=== PATIENT | male | born 1955 | race Caucasian/White ===

== ENCOUNTER 2019-05-05 09:05 | Day surgery (SDC) | payer MEDICARE, BC ==
[2019-05-05 09:38] LABS: INTERNATIONAL RATION (INR) 0.98
[2019-05-05 09:39] LABS: PARTIAL THROMBOPLASTIN TIME 29.1 SEC (23.5-35.8)
[2019-05-05] MEDS ORDERED: DEXTROSE 5%-1/2 NORMAL SALINE 1,000 ML IV PRN (10:10)
[2019-05-05 14:03] VITALS: BP 128/80
--- NOTE | 2019-05-06 14:17 | RADIOLOGY REPORT (SQ) ---
EXAM DESCRIPTION: CT LUMBAR SPINE WITH; MYELOGRAM LUMBAR COMPLETED DATE/TIME: 05/05/2019 11:52 am; 05/05/2019 11:53 am REASON FOR STUDY: SPINAL STENOSIS, LUMBAR REGION W/O NEUROGENIC CLAUDICATION M48.061 SPINAL STENOSI S, LUMBAR REGION WITHOUT NEUROGENIC CL Z79.01 [facility] (CURRENT) USE OF ANTICOAGULANTS COMPARISON: Lumbar myelogram 01/22/2008 FLUOROSCOPY TIME: 1 minutes 7 seconds 19 fluoroscopic digital images, CT scanning of the lumbar spine with sagittal and coronal reconstruct ions images saved to PACS. TECHNIQUE: Fluoroscopic guided lumbar myelogram. LIMITATIONS: None. PROCEDURE: After written consent and assessment were obtained, the patient was brought into the fluo roscopy room and placed prone on the table. The patient's lower back was prepped in a sterile fashio n and an entry site was selected under live fluoroscopic guidance. The entry site was anesthetized wi th 1% lidocaine. The spinal needle was advanced through the skin and into the thecal sac at the right paracentral L3-4 level .Contrast was injected into the thecal sac. Following the procedure the need le was removed and a sterile bandage was placed of the site. CONTRAST: 9 mL Omnipaque 180. IMAGES ACQUIRED: Multiple prone oblique, semi oblique, and upright fluoroscopic images including upri ght flexion and extension fluoro images of the lumbar spine TECHNIQUE: After performing lumbar myelogram, axial images were acquired through the lumbar spine wi thout intravenous contrast. Images reviewed with lung, soft tissue and bone windows. Reconstructed coronal and sagittal MPR images reviewed. Additional 3 dimensional post-processing performed to dev elop Maximal Intensity Projection images (MIP) All images stored on PACS. All CT scanners at this facility use dose modulation, iterative reconstruction, and/or weight based d osing when appropriate to reduce radiation dose to as low as reasonably achievable (ALARA). [facility]: Dose Right [facility]: CareDose [facility]: Dose Right [facility]: Teradose 4D [facility]: COINTERRA FINDINGS: SEGMENTATION: Normal. No transitional anatomy. ALIGNMENT: Normal. VERTEBRAL BODIES: No fractures. No dislocation. No acute findings. HARDWARE: Bilateral transpedicular screws and dorsal fixation plates from L2 through L4. DISCS: T9-10: Moderate bilateral facet hypertrophy is present with mild central canal stenosis and mild to moderate bilateral foraminal narrowing T10-11: Moderate bilateral facet hypertrophy is present mild central canal stenosis and malb-vx-gcyd rate bilateral foraminal narrowing T11-12: Mild bilateral facet and ligament hypertrophy is present. No central or foraminal stenosis. T12-L1: Mild bilateral facet and ligament hypertrophy is present. No central stenosis. Mild bilate ral foraminal narrowing. L1-L2: Diffuse posterior disc bulging is present with moderate bilateral facet and ligament hypertrop hy. Mild central canal narrowing. Mild bilateral foraminal narrowing. At fluoroscopy, symmetric ne rve root sleeve filling is present L2-L3: Post fusion with disc space prosthesis bilateral transpedicular screws and dorsal fixation keri collins. No laminectomy. Bulky bilateral facet and ligament hypertrophy, mild posterior disc bulging ca uses borderline central canal narrowing. Mild bilateral inferior foraminal narrowing. At fluoroscop y, symmetric nerve root sleeve filling is present L3-L4: Post fusion with bilateral transpedicular screws and dorsal fixation plates, disc space prosth esis. Bilateral laminectomy. No central stenosis. Mild bilateral foraminal narrowing. At fluorosc opy, symmetric nerve root sleeve filling is present. L4-L5: Prior fusion with bone graft at the disc space and bilateral laminectomy. Persistent bulky fa cet arthropathy. No central stenosis. No significant foraminal narrowing. Symmetric nerve root sle nathalia filling at fluoroscopy. L5-S1: No prior surgery at this level. Moderate bilateral facet and ligament hypertrophy is present with mild posterior disc bulging. At fluoroscopy, there is mild central canal narrowing with narrowi ng of the thecal sac at the L5-S1 disc level. There is truncation of filling of the proximal right S 1 nerve root as it exits the thecal sac at both fluoroscopy and at myelography CT. Truncation of rick ling of the right S1 nerve root as it exits the thecal sac is best shown on axial CT image 112/156, a nd coronal image 35-38. VISUALIZED RIBS: No fractures. SOFT TISSUES: No significant or acute finding in adjacent soft tissues. OTHER: No other significant finding. IMPRESSION: There is central canal narrowing canal at L5-S1 from broad diffuse posterior disc bulge and bulky bilateral facet and ligament hypertrophy. Asymmetric filling of the proximal right S1 nerv e root as it exits the thecal sac at the L5-S1 disc level. Other findings as above COMMENT: Patient medication list reviewed: Yes- Quality ID# [id number]:Eligible professional attests to doc umenting in the medical record they obtained, updated, or reviewed the patient's current medications. TECHNICAL DOCUMENTATION: JOB ID: [id number] Quality ID # [id number]: Final reports with documentation of one or more dose reduction techniques (e.g., Au tomated exposure control, adjustment of the mA and/or kV according to patient size, use of iterative reconstruction technique) 2010 [employer]- All Rights Reserved Reading location - IP/workstation name: [email or web address]
== END 2019-05-05 14:00 | disposition home or self-care (01) ==
LOC: RAD 09:05
PROVIDERS: ATTEND Orthopaedic Surgery
DX: M48.061 Spinal stenosis, lumbar region without neurogenic claudication (principal); M54.5 Low back pain; Z79.01 Long term (current) use of anticoagulants; Z79.899 Other long term (current) drug therapy; Z79.84 Long term (current) use of oral hypoglycemic drugs; I10 Essential (primary) hypertension; E11.9 Type 2 diabetes mellitus without complications
CPT/HCPCS: 36415; 72132; 72265; 85610; 85730

== ENCOUNTER → 2020-05-14 | Outpatient (CLI) | payer MEDICARE, BC ==
[~2020-05-14] MED LIST: COVID-19 VACCINE (PFIZER)/PF 30 MCG/0.3 ML VIAL IM ONE; EPINEPHRINE INJ/PF 1 MG/1 ML AMPULE IM PRN
== END ==
LOC: EMPHEALTH 15:35
PROVIDERS: ATTEND Internal Medicine
DX: Z23 Encounter for immunization (principal)
CPT/HCPCS: 91300

== ENCOUNTER → 2020-06-04 | Outpatient (CLI) | payer MEDICARE, BC | LOC: EMPHEALTH 15:16 | PROVIDERS: ATTEND Internal Medicine | DX: Z23 Encounter for immunization (principal) | CPT/HCPCS: 91300 ==